=== PATIENT | male | born 2000 | race Caucasian/White ===

== ENCOUNTER 2023-04-03 16:03 | Emergency (ER) | payer OTHER ==
[2023-04-03 16:19] VITALS: BP 131/80; PULSE 88; RESP 18; TEMP 97.6; BMI 27.4
[2023-04-03] MEDS ORDERED: DIPHTH,PERTUSS(ACELL),TET 0.5 ML DISP.SYRIN IM ONE ×3 (18:00→18:17)
[2023-04-03] MEDS ORDERED: ACETAMINOPHEN 500 MG TABLET (FP) PO ONE (18:53)
[2023-04-03] MEDS ORDERED: ACETAMINOPHEN 500 MG TABLET (FP) ONE (18:54)
== END 2023-04-03 20:40 | disposition home or self-care (01) ==
LOC: JERFT 16:03
PROC: 0H91XZZ Drainage of Face Skin, External Approach (ICD-10-PCS; principal; 2023-04-03)
PROC: 3E0234Z Introduction of Serum, Toxoid and Vaccine into Muscle, Percutaneous Approach (ICD-10-PCS; 2023-04-03)
DX: S01.112A Laceration without foreign body of left eyelid and periocular area, initial encounter (principal); W22.8XXA Striking against or struck by other objects, initial encounter
CPT/HCPCS: 70480-TC; 90715; 99284-25

== ENCOUNTER 2023-04-09 17:44 | Emergency (ER) | payer OTHER ==
[2023-04-09 18:10] VITALS: BP 114/66; PULSE 72; RESP 20; TEMP 98.3; BMI 24.3
[2023-04-09] MEDS ORDERED: BACITRACIN ZINC 15 GM TUBE TOPICAL OINTMENT ONE (18:38)
== END 2023-04-09 18:50 | disposition home or self-care (01) ==
LOC: JERFT 17:44
DX: Z48.02 Encounter for removal of sutures (principal)
CPT/HCPCS: 99281-25

== ENCOUNTER 2025-03-01 06:07 | Day surgery (SDC) | payer BC, OTHER ==
[2025-02-25 13:46] VITALS: BMI 28.1
[2025-03-01] MEDS ORDERED: MIDAZOLAM HCL 2 MG/2 ML SINGLE DOSE VIAL ONE (07:22)
[2025-03-01] MEDS ORDERED: BUPIVACAINE HCL/PF 0.5% (5MG/ML) 10 ML VIAL ONE (07:24)
[2025-03-01] MEDS ORDERED: BUPIVACAINE HCL/PF 0.5% (5 MG/ML) 30 ML VIAL IJ ONE (07:26)
[2025-03-01] MEDS ORDERED: BUPIVACAINE LIPOSOME/PF (EXPAREL) 266 MG/20 ML VIAL ONE (07:26)
[2025-03-01] MEDS ORDERED: EPINEPHrine 1:1,000 1,000 MCG/ML ML ONE (07:34)
[2025-03-01] MEDS ORDERED: PROPOFOL 20 ML ONE (07:36)
[2025-03-01] MEDS ORDERED: ACETAMINOPHEN INJECTION 100 ML ONE (07:41)
[2025-03-01] MEDS ORDERED: DEXMEDETOMIDINE HCL 200 MCG/2 ML IVPB ONE (07:47)
[2025-03-01] MEDS ORDERED: HYDROmorphone HCL/PF 1 MG/ML VIAL ONE ×2 (08:09→08:34)
[2025-03-01] MEDS ORDERED: ceFAZolin SODIUM 1 GM VIAL ONE (08:34)
[2025-03-01] MEDS ORDERED: DEXAMETHASONE SOD PHOSPHATE 4 MG/1 ML VIAL ONE (08:34)
[2025-03-01] MEDS ORDERED: ONDANSETRON 4 MG/2 ML VIAL ONE (08:34)
[2025-03-01] MEDS ORDERED: ONDANSETRON 4 MG/2 ML VIAL IVPUSH PRN (09:35)
[2025-03-01] MEDS ORDERED: oxyCODONE HCL 5 MG TABLET PO PRN ×2 (09:35)
[2025-03-01] MEDS ORDERED: LACTATED RINGERS SOLUTION 1,000 ML IV SCH (09:45)
[2025-03-01 12:05] VITALS: RESP 18; TEMP 98
[2025-03-01 12:28] VITALS: BP 136/76; PULSE 91
== END 2025-03-01 12:45 | disposition home or self-care (01) ==
LOC: FASU 06:07
PROVIDERS: ATTEND Orthopaedic Surgery Sports Medicine
PROC: 0MQN4ZZ Repair Right Knee Bursa and Ligament, Percutaneous Endoscopic Approach (ICD-10-PCS; principal; 2025-03-01 08:31)
PROC: 0MRN4JZ Replacement of Right Knee Bursa and Ligament with Synthetic Substitute, Percutaneous Endoscopic Approach (ICD-10-PCS; 2025-03-01 08:31)
DX: S83.511A Sprain of anterior cruciate ligament of right knee, initial encounter (principal); S83.281A Other tear of lateral meniscus, current injury, right knee, initial encounter; M65.861 Other synovitis and tenosynovitis, right lower leg; X58.XXXA Exposure to other specified factors, initial encounter; Y92.9 Unspecified place or not applicable; Y93.9 Activity, unspecified
CPT/HCPCS: 29876; 29881; 29888; C1713; 94760; C1768; J0131; J0666